=== PATIENT | male | born 1950 | race Caucasian/White ===

== ENCOUNTER 2020-05-29 09:44 | Observation (INO) ==
[~2020-05-29 09:44] MED LIST: ceFAZolin 1,000 MG, Sodium Chloride IRRigation 1,000 ML IR ONE
[2020-05-29] MEDS ORDERED: *HR* Rocuronium Bromide 50 MG/5 ML VIAL ONE (09:58)
[2020-05-29] MEDS ORDERED: Lidocaine -MPF 2% 2 ML VIAL ONE ×2 (09:58→16:04)
[2020-05-29] MEDS ORDERED: Ondansetron 4 MG/2 ML VIAL ONE (09:58)
[2020-05-29] MEDS ORDERED: *HR* FentaNYL (PF) 100 MCG/2 ML VIAL ONE ×2 (09:58→15:14)
[2020-05-29] MEDS ORDERED: *HR* Propofol 200 MG/20 ML VIAL IVP ONE (09:58)
[2020-05-29] MEDS ORDERED: Dexamethasone 4 MG/ML VIAL ONE (09:58)
[2020-05-29] MEDS ORDERED: Ringers Solution, Lactated 1,000 ML IVC SCH ×2 (10:00→10:45)
[2020-05-29] MEDS ORDERED: Scopolamine Patch 1.5 MG PATCH.TD72 TD ONE (10:36)
[2020-05-29] MEDS ORDERED: Ondansetron 4 MG/2 ML VIAL IVP PRN ×2 (10:37→19:40)
[2020-05-29] MEDS ORDERED: *HR* OxyCODONE Immed Rel 5 MG TABLET PO PRN ×2 (10:37→19:40)
[2020-05-29] MEDS ORDERED: CeFAZolin Syr 2,000MG/20 ML 2,000 MG/20 ML SYRINGE IVPB ONE (13:27)
[2020-05-29] MEDS ORDERED: Heparin 1,000 UNITS/500 mL 500 ML ONE ×3 (13:33→17:05)
[2020-05-29] MEDS ORDERED: Lidocaine/EPI 1:100k 1% 20 ML VIAL ONE (14:26)
[2020-05-29] MEDS ORDERED: Lidocaine 1% 20 ML MDV ONE (14:27)
[2020-05-29] MEDS ORDERED: EPHEDrine 50 MG/ML VIAL ONE (14:35)
[2020-05-29] MEDS ORDERED: EPINEPHrine 1 MG/ML VIAL ONE (15:23)
[2020-05-29] MEDS ORDERED: *HR* Remifentanil 2 MG VIAL IVP ONE (15:23)
[2020-05-29] MEDS ORDERED: *HR* Labetalol 20 MG/4 ML SYRINGE IVP ONE (15:38)
[2020-05-29] MEDS ORDERED: *HR* Heparin 5,000 UNIT/ML VIAL ONE ×2 (16:14→16:59)
[2020-05-29] MEDS ORDERED: Naloxone 0.4 MG/ML INJ IVP PRN (19:40)
[2020-05-29] MEDS ORDERED: Acetaminophen 325 MG TABLET PO PRN (19:40)
[2020-05-29] MEDS ORDERED: *HR* HYDROcodone/Acet 5/325 mg TABLET PO PRN (19:40)
[2020-05-29] MEDS ORDERED: *HR* Labetalol 20 MG/4 ML SYRINGE IVP PRN (19:40)
[2020-05-30] MEDS: Ibuprofen 400 MG TABLET PO SCH ×3 (00:27→11:04)
[2020-05-30] MEDS: CeFAZolin 2 GM/120 ML BAG IVPB SCH ×3 (00:28→15:01)
[2020-05-30 01:14] LABS: Basophils % 0.1 %; Hematocrit 36.1 % (37.5-50.1); Hemoglobin 11.7 g/dL (12.9-16.9); Immature Granulocytes % 0.4 % (0-4); Lymphocytes # 1.1 K/mcL (0.6-4.6); Lymphocytes % 11.3 %; Mean Corpuscular HGB Conc 32.4 g/dL (31.6-35.5); Mean Corpuscular Hemoglobin 30.9 pg (28.0-33.3); Mean Corpuscular Volume 95.3 fL (83.0-100.0); Mean Platelet Volume 8.2 fL (9.4-12.4); Monocytes # 0.4 K/mcL (0.0-1.3); Monocytes % 3.9 %; Neutrophils # 8.3 K/mcL (1.6-8.9); Nucleated Red Blood Cells 0.2 /100 WBC (0); Platelet Count 166 K/mcL (140-400); Red Blood Count 3.79 M/mcL (4.19-5.50); Red Cell Distribution Width 12.2 % (11.5-14.5); Segmented Neutrophils % 84.3 %; White Blood Count 9.8 K/mcL (4.3-11.1)
[2020-05-30 01:33] LABS: BUN/Creatinine Ratio 24 (6-26); Blood Urea Nitrogen 20 mg/dL (8-23); Calcium 9.1 mg/dL (8.6-10.3); Carbon Dioxide 21 mEq/L (23-29); Chloride 105 mEq/L (98-107); Glucose 116 mg/dL (70-105); Osmolality,Calculated 288 (280-300); Potassium 4.7 mEq/L (3.5-5.1); Sodium 137 mEq/L (136-145); eGFR For African Americans > 60 (> 60); eGFR For Non-African Americans > 60 (> 60)
[2020-05-30] MEDS ORDERED: lisinopriL 20 MG TABLET PO SCH (09:00)
[2020-05-30] MEDS ORDERED: Aspirin Enteric Coated 81 MG Tablet PO SCH (09:00)
[2020-05-30] MEDS ORDERED: FLU Vac QV 20-21 (6Month+)/PF 0.5 ML SYRINGE IM ONE (13:44)
[2020-05-30 17:16] VITALS: BP 148/70
== END 2020-05-30 18:36 | disposition home or self-care (01) | DRG 39 ==
LOC: SAMDAY 09:44 → INTOOBSV 19:39 → 2NNU 19:39
PROVIDERS: ADMIT Surgery Vascular Surgery; ATTEND Surgery Vascular Surgery